=== PATIENT | male | born 1985 | race Caucasian/White ===

== ENCOUNTER 2021-05-31 09:19 | Emergency (ER) | payer OTHER ==
--- NOTE | 2021-05-31 10:54 | ER ---
Nurse's Notes [facility] Name: Pepe Alegre Age: 36 yrs Sex: Male : 1985 Arrival Date: 05/31/2021 Time: 09:22 Bed DIS1 Private MD: Diagnosis: Coronavirus infection, unspecified Presentation: 05/31 09:31 Chief complaint: Patient states: Cough and congestion started yesterday. is covid ll1 positive, has been quarantined for 10+ days. No fever. Coronavirus screen: Client denies travel out of the [place] in the last 14 days. congestion, cough unrelated to allergies, runny nose, Client presents with at least one sign or symptom that may indicate coronavirus-19. Standard/surgical mask placed on the client. Ebola Screen: Patient denies travel to an Ebola-affected area in the 21 days before illness onset. No symptoms or risks identified at this time. Initial Sepsis Screen: Does the patient meet any 2 criteria? No. Patient's initial sepsis screen is negative. Does the patient have a suspected source of infection? No. Patient's initial sepsis screen is negative. Risk Assessment: Do you want to hurt yourself or someone else? Patient reports no desire to harm self or others. Onset of symptoms was May 30, 2021. 09:31 Method Of Arrival: Ambulatory ll1 09:31 Acuity: CHETAN 4 ll1 Historical: - Allergies: 09:31 No Known Allergies; ll1 - PMHx: 09:31 None; ll1 - PSHx: 09:31 None; ll1 - Immunization history:: Client reports receiving the 1st dose of the Covid vaccine, Flu vaccine is not up to date. - Social history:: Smoking status: Patient denies any tobacco usage or history of. Screenin:07 Abuse screen: Denies threats or abuse. Nutritional screening: No deficits noted. ll1 Tuberculosis screening: No symptoms or risk factors identified. Fall Risk None identified. Total Wu Fall Scale indicates No Risk (0-24 pts). Assessment: 09:32 General: Appears in no apparent distress. Behavior is calm, cooperative, appropriate ll1 for age. Pain: Denies pain. Neuro: No deficits noted. Cardiovascular: No deficits noted. Respiratory: Airway is patent Trachea midline Respiratory effort is even, unlabored, Respiratory pattern is regular, symmetrical, Breath sounds are clear bilaterally. the patient has mild shortness of breath. GI: No deficits noted. Vital Signs: 09:31 BP 135 / 102; Pulse 80; Resp 17; Temp 98.5; Pulse Ox 97% ; Weight 115.67 kg; Height 6 ll1 ft. 0 in. (182.88 cm); Pain 0/10; 11:00 BP 120 / 75; Pulse 80; Resp 16; Pulse Ox 97% ; ll1 09:31 Body Mass Index 34.58 (115.67 kg, 182.88 cm) ll1 ED Course: 09:22 Patient arrived in ED. ds1 09:23 Mayra Barrera [facility]C [facility]. kb 09:23 Paramjit Guan MD is Attending Physician. kb 09:31 Arm band placed on. ll1 09:34 Triage completed. ll1 09:34 Rosalinda Castle RN is Primary Nurse. ll1 10:07 Patient has correct armband on for positive identification. Bed in low position. ll1 Cardiac monitoring not applicable on this patient. 11:05 No provider procedures requiring assistance completed. Patient did not have IV access ll1 during this emergency room visit. Administered Medications: No medications were administered Outcome: 10:54 Discharge ordered by . kb 11:05 Patient left the ED. ll1 11:05 Discharged to home ambulatory. ll1 11:05 Condition: stable 11:05 Discharge instructions given to patient, Instructed on discharge instructions, follow up and referral plans. Demonstrated understanding of instructions, follow-up care. Signatures: Mayra Barrera FNP-C FNP-Ckb [place], Demi ds1 Rosalinda Castle, RN RN [facility]
--- NOTE | 2021-05-31 10:55 | EDPHYS ---
Physician Documentation [facility] Name: Pepe Alegre Age: 36 yrs Sex: Male : 1985 Arrival Date: 05/31/2021 Time: 09:22 Bed DIS1 Private MD: ED Physician Paramjit Guan HPI: 05/31 09:45 This 36 yrs old Male presents to ER via Ambulatory with complaints of Cough. kb 09:45 The patient or guardian reports cough, that is intermittent, described as mild. Onset: kb The symptoms/episode began/occurred yesterday. Severity of symptoms: At their worst the symptoms were mild, in the emergency department the symptoms are unchanged. Modifying factors: The symptoms are alleviated by nothing, the symptoms are aggravated by nothing. Associated signs and symptoms: The patient has no apparent associated signs or symptoms. The patient has not experienced similar symptoms in the past. The patient has not recently seen a physician. Patient reports cough and congestion that started yesterday. Patient's recently had Covid and he quarantined with her for 10 days. Patient never set showed symptoms until yesterday and is supposed to return to work tomorrow so he came in to get tested.. Historical: - Allergies: 09:31 No Known Allergies; ll1 - PMHx: 09:31 None; ll1 - PSHx: 09:31 None; ll1 - Immunization history:: Client reports receiving the 1st dose of the Covid vaccine, Flu vaccine is not up to date. - Social history:: Smoking status: Patient denies any tobacco usage or history of. ROS: 09:45 Constitutional: Negative for fever, chills, and weight loss. kb 09:45 ENT: Positive for sinus congestion. 09:45 Respiratory: Positive for cough, Negative for dyspnea on exertion, hemoptysis, orthopnea, pleurisy, shortness of breath, sputum production, wheezing. 09:45 All other systems are negative. Exam: 09:45 Constitutional: This is a well developed, well nourished patient who is awake, alert, kb and in no acute distress. Head/Face: Normocephalic, atraumatic. ENT: Moist Mucous membranes Cardiovascular: Regular rate and rhythm with a normal S1 and S2. No gallops, murmurs, or rubs. No pulse deficits. Respiratory: Respirations even and unlabored. No increased work of breathing, no retractions or nasal flaring. Skin: Warm, dry with normal turgor. Normal color. MS/ Extremity: Pulses equal, no cyanosis. Neurovascular intact. Full, normal range of motion. Neuro: Awake and alert, GCS 15, oriented to person, place, time, and situation. Moves all extremities. Normal gait. Psych: Awake, alert, with orientation to person, place and time. Behavior, mood, and affect are within normal limits. Vital Signs: 09:31 BP 135 / 102; Pulse 80; Resp 17; Temp 98.5; Pulse Ox 97% ; Weight 115.67 kg; Height 6 ll1 ft. 0 in. (182.88 cm); Pain 0/10; 11:00 BP 120 / 75; Pulse 80; Resp 16; Pulse Ox 97% ; ll1 09:31 Body Mass Index 34.58 (115.67 kg, 182.88 cm) ll1 MDM: 09:36 Patient medically screened. kb 09:43 Data reviewed: vital signs, nurses notes. kb 10:53 Data interpreted: Pulse oximetry: on room air is 97 %. Interpretation: normal. kb Counseling: I had a detailed discussion with the patient and/or guardian regarding: the historical points, exam findings, and any diagnostic results supporting the discharge/admit diagnosis, lab results, the need for outpatient follow up, a family practitioner, to return to the emergency department if symptoms worsen or persist or if there are any questions or concerns that arise at home. 05/31 10:54 Order name: SARS-COV-2 RT PCR; Complete Time: 10:54 EDMS Administered Medications: No medications were administered Disposition: 11:05 Co-signature as Attending Physician, Paramjit Guan MD. rn Disposition Summary: 05/31/21 10:54 Discharge Ordered Location: Home kb Condition: Stable kb Diagnosis - Coronavirus infection, unspecified kb Followup: kb - With: Private Physician - When: 2 - 3 days - Reason: Recheck today's complaints, Continuance of care, Re-evaluation by your physician Followup: kb - With: Emergency Department - When: As needed - Reason: Worsening of condition Discharge Instructions: - Discharge Summary Sheet kb - Viral Respiratory Infection, [id number] kb - COVID-19 kb Forms: - Medication Reconciliation Form kb - Thank You Letter kb - Antibiotic Education kb - Prescription Opioid Use kb - Work release form ll1 Signatures: Dispatcher [employer] EDMS Mayra Barrera, COMMUTER PILOT-C COMMUTER PILOT-Paramjit Roa MD MD rn Lewis, Lynsay, RN RN ll1 Corrections: (The following items were deleted from the chart) 09:50 09:37 CORONAVIRUS+BRZ ordered. EDMS EDMS
[2021-05-31 11:10] VITALS: BP 135/102; TEMP 98.5; O2SAT 97
== END 2021-05-31 11:05 | disposition home or self-care (01) ==
LOC: ER 09:19
DX: U07.1 COVID-19 (principal)
CPT/HCPCS: 99281; U0003

== ENCOUNTER 2024-02-06 16:43 | Emergency (ER) | payer OTHER ==
--- NOTE | 2024-02-06 17:14 | EDPHYS ---
Physician Documentation [facility] Name: Pepe Alegre Age: 38 yrs Sex: Male : 1985 Arrival Date: 02/06/2024 Time: 16:43 Bed DX2 Private MD: ED Physician Livan Flores HPI: 02/05 17:13 This 38 yrs old Male presents to ER via Ambulatory with complaints of Insect Bite. ms3 17:13 38-year-old male with no past medical history presents to the emergency department for ms3 right medial heel lesion. Patient states on 20 January she noticed a small area that appeared like an insect bite. Patient states since that time the area has become larger with a blister overlying it. Patient states the pain has improved since onset. Patient denies any alleviating or inciting factor. Historical: - Allergies: 17:07 No Known Allergies; as6 - Home Meds: 17:07 None [Active]; as6 - PMHx: 17:07 None; as6 - PSHx: 17:07 None; as6 - Immunization history:: Adult Immunizations up to date. - Infectious Disease History:: Denies. - Social history:: Smoking status: Patient denies any tobacco usage or history of. ROS: 17:13 Constitutional: Negative for fever, and chills. Neck: Negative for injury, pain, and ms3 swelling, Cardiovascular: Negative for chest pain, and palpitations. Respiratory: Negative for shortness of breath, cough, wheezing, and pleuritic chest pain, Abdomen/GI: Negative for abdominal pain, nausea, vomiting, diarrhea, and constipation, MS/Extremity: Negative for injury and deformity, 17:13 Skin: Positive for cellulitis, Exam: 17:13 Constitutional: This is a well developed, well nourished patient who is awake, alert, ms3 and in no acute distress. Head/Face: Normocephalic, atraumatic. Chest/axilla: Normal chest wall appearance and motion. Nontender with no deformity. Cardiovascular: Regular rate and rhythm with a normal S1 and S2. No gallops, murmurs, or rubs. Normal PMI, no JVD. No pulse deficits. Respiratory: Lungs have equal breath sounds bilaterally, clear to auscultation and percussion. No rales, rhonchi or wheezes noted. No increased work of breathing, no retractions or nasal flaring. Abdomen/GI: Soft, non-tender, with normal bowel sounds. No distension or tympany. No guarding or rebound. No evidence of tenderness throughout. 17:13 Skin: cellulitis, that is mild, on the Right heel, Vital Signs: 17:06 BP 142 / 102; Pulse 82; Resp 19 S; Temp 97.7(TE); Pulse Ox 100% on R/A; Weight 113.4 kg as6 (R); Height 6 ft. 0 in. (R); Pain 0/10; 17:06 Body Mass Index 33.91 (113.40 kg, 182.88 cm) as6 17:06 Pain Scale: Adult as6 MDM: 16:48 Patient medically screened. rn 17:13 Differential diagnosis: Cellulitis versus insect bite. Data reviewed: vital signs, ms3 nurses notes, and as a result, I will discharge patient. Counseling: I had a detailed discussion with the patient and/or guardian regarding the historical points, exam findings, and any diagnostic results supporting the discharge/admit diagnosis, the need for outpatient follow up, to return to the emergency department if symptoms worsen or persist or if there are any questions or concerns that arise at home. Special discussion: I discussed with the patient/guardian in detail that at this point there is no indication for admission to the hospital. It is understood, however, that if the symptoms persist or worsen the patient needs to return immediately for re-evaluation. ED course: Discussed physical exam findings with patient. Patient given prescription for doxycycline. Patient to follow-up with Dr. Mccracken in 2 to 3 days. Patient understands and agrees with plan. All questions were answered. Return precautions discussed include worsening symptoms, or any other concerns. Administered Medications: No medications were administered Disposition Summary: 02/06/24 17:13 Discharge Ordered Notes: Location: Home ms3 Condition: Stable ms3 Diagnosis - Cellulitis of right lower limb ms3 Followup: ms3 - With: Michael Mccracken DO - When: 2 - 3 days - Reason: Recheck today's complaints Discharge Instructions: - Discharge Summary Sheet ms3 - Cellulitis, Adult ms3 Forms: - Medication Reconciliation Form ms3 - Thank You Letter ms3 - Antibiotic Education ms3 - Prescription Opioid Use ms3 - Patient Portal Instructions ms3 - Leadership Thank You Letter ms3 Prescriptions: - Doxycycline Hyclate 100 mg Oral Tablet - take 1 tablet ORAL route every 12 hours; 20 tablet; Refills: 0, Product ms3 Selection Permitted Signatures: Paramjit Guan MD MD rn Livan Flores DO DO ms3 Aneesh Peng RN RN as6
--- NOTE | 2024-02-06 17:14 | ER ---
Nurse's Notes [facility] Name: Pepe Alegre Age: 38 yrs Sex: Male : 1985 Arrival Date: 02/06/2024 Time: 16:43 Bed DX2 Private MD: Diagnosis: Cellulitis of right lower limb Presentation: 02/05 17:07 Chief complaint: Patient states: "I think I got bit by something a while ago but I'm as6 not sure what it was" pt has bite to right medial heel. Coronavirus screen: At this time, the client does not indicate any symptoms associated with coronavirus-19. Ebola Screen: No symptoms or risks identified at this time. Initial Sepsis Screen: Does the patient meet any 2 criteria? No. Patient's initial sepsis screen is negative. Does the patient have a suspected source of infection? No. Patient's initial sepsis screen is negative. Risk Assessment: Do you want to hurt yourself or someone else? Patient reports no desire to harm self or others. Onset of symptoms was February 06, 2024. 17:07 Acuity: CHETAN 5 as6 17:07 Method Of Arrival: Ambulatory as6 Triage Assessment: 17:44 General: Appears in no apparent distress. Behavior is calm, cooperative. Pain: Denies as6 pain. Injury Description: Bite sustained to medial aspect of right heel caused by an unknown animal, is superficial, from animal. Historical: - Allergies: 17:07 No Known Allergies; as6 - Home Meds: 17:07 None [Active]; as6 - PMHx: 17:07 None; as6 - PSHx: 17:07 None; as6 - Immunization history:: Adult Immunizations up to date. - Infectious Disease History:: Denies. - Social history:: Smoking status: Patient denies any tobacco usage or history of. Screenin:[facility] ED Fall Risk Assessment (Adult) History of falling in the last 3 months, as6 including since admission No falls in past 3 months (0 pts) Confusion or Disorientation No (0 pts) Intoxicated or Sedated No (0 pts) Impaired Gait No (0 pts) Mobility Assist Device Used No (0 pt) Altered Elimination No (0 pt) Score/Fall Risk Level 0 - 2 = Low Risk Oriented to surroundings, Maintained a safe environment, Educated pt \\T\\ family on fall prevention, incl call for assistance when getting out of bed, Assessed \\T\\ reinforced patient's understanding of fall precautions, Hourly rounding (assess needs \\T\\ fall precautionary measures) done. Abuse screen: Denies threats or abuse. Denies injuries from another. Nutritional screening: No deficits noted. Tuberculosis screening: No symptoms or risk factors identified. Vital Signs: 17:06 BP 142 / 102; Pulse 82; Resp 19 S; Temp 97.7(TE); Pulse Ox 100% on R/A; Weight 113.4 kg as6 (R); Height 6 ft. 0 in. (R); Pain 0/10; 17:06 Body Mass Index 33.91 (113.40 kg, 182.88 cm) as6 17:06 Pain Scale: Adult as6 ED Course: 16:46 Patient arrived in ED. mg5 16:48 Paramjit Guan MD is Attending Physician. rn 17:03 Attending Physician role handed off by Paramjit Guan MD rn 17:03 Livan Flores DO is Attending Physician. rn 17:06 Arm band placed on. as6 17:08 Triage completed. as6 17:12 Michael Mccracken DO is Referral Physician. ms3 17:44 Aneesh Peng, АЛЕКСАНДР is Primary Nurse. as6 17:45 Patient has correct armband on for positive identification. Call light in reach. as6 Provided Education on: abx teaching. 17:45 No provider procedures requiring assistance completed. Patient did not have IV access as6 during this emergency room visit. Administered Medications: No medications were administered Medication: 17:46 VIS not applicable for this client. as6 Outcome: 17:13 Discharge ordered by . ms3 17:45 Discharged to home ambulatory, as6 17:45 Condition: stable 17:45 Discharge instructions given to patient, Instructed on discharge instructions, follow up and referral plans. medication usage, Demonstrated understanding of instructions, follow-up care, medications, Prescriptions given X 1, 17:46 Patient left the ED. as6 Signatures: Paramjit Guan MD MD rn Sims, Marcus, DO DO ms3 Aneesh Peng, АЛЕКСАНДР RN as6 Yue Phillips mg5
[2024-02-06 23:06] VITALS: BP 142/102; TEMP 97.7; O2SAT 100
== END 2024-02-06 17:46 | disposition home or self-care (01) ==
LOC: ER 16:43
DX: L03.115 Cellulitis of right lower limb (principal)
CPT/HCPCS: 99283